=== PATIENT | female | born 1955 | race Caucasian/White ===

== ENCOUNTER → 2017-07-20 07:07 | Outpatient (CLI) | payer OTHER, SELFPAY ==
[2017-07-20 07:21] LABS: Basophils % 0.9 % (0.1-2.0); Eosinophils # 0.1 K/mm3 (0.0-0.4); Eosinophils % 1.8 % (0.1-12.0); Hemoglobin 14.9 g/dL (12.2-16.2); Lymphocytes # 1.6 K/mm3 (0.7-4.5); Lymphocytes % 41.6 K/mm3 (10-50); Mean Corpuscular HGB Conc 32.4 g/dL (31.8-35.4); Mean Corpuscular Hemoglobin 29.5 pg (27.0-31.2); Mean Corpuscular Volume 91.2 fl (81-99); Mean Platelet Volume 7.3 fl (7.4-10.4); Monocytes # 0.2 K/mm3 (0.1-1.0); Neutrophils # 1.9 K/mm3 (1.8-7.8); Neutrophils % 49.7 % (37.0-80.0); Platelet Count 238 K/mm3 (142-424); Red Blood Count 5.04 M/mm3 (4.20-5.40); Red Cell Distribution Width 12.8 % (11.5-17.5); White Blood Count 3.9 K/mm3 (4.8-10.8)
[2017-07-20 09:46] LABS: Erythrocyte Sedimentation Rate 6 mm/hr (0-30)
[2017-07-20 09:47] LABS: Alanine Aminotransferase 108 U/L (12-78); Albumin/Globulin Ratio 1.3 (1.1-1.8); Alkaline Phosphatase 114 U/L (46-116); Anion Gap 11.3 mEq/L (5-15); Aspartate Amino Transferase 72 U/L (15-37); Bilirubin,Total 0.4 mg/dL (0.2-1.0); Blood Urea Nitrogen 21 mg/dL (7-18); Calcium 9.2 mg/dL (8.5-10.1); Carbon Dioxide 30 mmol/L (21.0-32.0); Chloride 107 mmol/L (98-107); Chol/HDL Ratio 2.2 (1-3.5); Cholesterol 219 mg/dL (140-200); Creatinine,Serum 0.68 mg/dL (0.55-1.02); Estimated Glomerular Filt Rate 87 ml/min (>60); Free Thyroxine Index 3.5 ug/dL (5.93-13.13); GFR (African American) 106 ML/MIN (>60); Globulin 3.2 gm/dl (1.3-3.2); Glucose 87 mg/dL (74-106); HDL Cholesterol 99 mg/dL (29-89); LDL Cholesterol 109 mg/dL (0-130); Potassium 5.3 mmoL/L (3.5-5.1); Sodium 143 mmol/L (136-145); T4 (Thyroxine) 9.6 ug/dl (4.7-13.3); Thyroid Stimulating Hormone 5.45 uIU/ml (0.358-3.740); Total Protein,Serum 7.2 gm/dL (6.4-8.2); Triglycerides 55 mg/dL (30-200); Triiodothryronine (T3) Uptake 36 % (31-39); VLDL Cholesterol 11 mg/dL (0-40)
== END ==
PROVIDERS: Visit Provider Internal Medicine Adolescent Medicine
DX: E03.9 Hypothyroidism, unspecified (principal); M19.041 Primary osteoarthritis, right hand; M19.042 Primary osteoarthritis, left hand; Z00.00 Encounter for general adult medical examination without abnormal findings
CPT/HCPCS: 36415; 80053; 80061; 84436; 84443; 84479; 85025; 85651

== ENCOUNTER → 2017-11-25 08:15 | Outpatient (CLI) | payer OTHER, SELFPAY ==
--- NOTE | 2017-11-25 08:17 | XR_ITS ---
. DEXA DEXA SCAN.-BONE DENSITY STUDY HIPS AND LUMBAR SPINE HISTORY: Postmenopausal female 62-year-old female. It. Hypothyroidism. Taking evista and levoxyl. Occasional calcium replacement. Wrist fracture from old horse injury TECHNIQUE: DEXA scan hip and lumbar spine The most complete data summary and color graphic presentation of the today's ( and any prior ) DEXA findings are available in PACS. Definition and treatment guidelines included. COMPARISON: October 2016 LUMBAR SPINE: . Normal bone density L1 vertebral body demonstrates the lowest T score -0.1 with BMD1.114 g/cm sq Overall mean lumbar L1-L4 T score 1.3 cm with BMD1.334 g/cm sq . 2017 prior DEXA the mean T score 0.7 with BMD was1.267g/cm sq Thus when comparing today's study to the prior exam there's been a 5.3% increasing mean bone density at the lumbar spine. HIPS: Femoral neck density is best predictor of hip fracture risk . Left femoral neck demonstrates the lowest T score -1.2 with BMD0.877 g/cm sq . Right femoral neck T score -1.0 with BMD 0.902 Averaging all region included yields today's Hip Mean T score -1.0 with BMD0.877 g/cm sq . 2017 DEXA overall average mean hip. T score -1.1 with mean BMD0.873 g/cm sq Thus this reflects a 0.5% decrease overall mean bone density at the hips in the interval. IMPRESSION 1. LUMBAR SPINE: Normal bone density at all levels 2. HIPS:. Overall borderline osteopenia with overall T score = -1.0... But improving slightly since 2017 Mild/borderline Osteopenia at femoral necks with T score = -1.2 at left femoral neck; and T score = 1.0 at right femoral neck WHO criteria for post-menopausal, Women: Normal: T-score at or above -1 SD Osteopenia: T-score between -1 and -2.5 SD Osteoporosis: T-score at or below -2.5 SD
--- NOTE | 2017-11-25 08:17 | MM_ITS ---
MM Dig screening mamm BI w/CAD CAD Screening COMPARISON: Digital mammograms with CAD 10/24/2015 and 10/29/2016 INDICATION: There Is a history of breast cancer patient's sister diagnosed before menopause. There have been previous biopsies on each breast for benign disease. TECHNIQUE: Standard CC and MLO images were obtained. R2 CAD reviewed. FINDINGS: Prominent heterogenic fibroglandular densities are seen in the central portions and subareolar regions of both breasts. There are few benign-appearing calcifications in each breast. There is a biopsy clip right breast. There is no suspicious lesion and no suspicious microcalcifications. IMPRESSION: Moderate breast density with no suspicious lesion seen BI-RADS Category: 2 Benign Finding(s) RECOMMENDED FOLLOW-UP: 1YR - 1 YEAR FOLLOW-UP (A letter has been sent to the patient regarding results of the study.)
== END ==
PROVIDERS: Family Provider Internal Medicine Adolescent Medicine; PCP Internal Medicine Adolescent Medicine; Visit Provider Obstetrics & Gynecology
DX: Z78.0 Asymptomatic menopausal state (principal); Z12.31 Encounter for screening mammogram for malignant neoplasm of breast
CPT/HCPCS: 77067; 77080

== ENCOUNTER → 2018-06-24 07:08 | Outpatient (CLI) | payer OTHER, SELFPAY ==
[2018-06-24 08:51] LABS: Alanine Aminotransferase 55 U/L (12-78); Albumin Level 3.9 gm/dL (3.4-5.0); Albumin/Globulin Ratio 1.4 (1.1-1.8); Alkaline Phosphatase 100 U/L (46-116); Anion Gap 12.3 mEq/L (5-15); Aspartate Amino Transferase 44 U/L (15-37); Bilirubin,Total 0.4 mg/dL (0.2-1.0); Blood Urea Nitrogen 18 mg/dL (7-18); Calcium 8.9 mg/dL (8.5-10.1); Carbon Dioxide 29 mmol/L (21.0-32.0); Chloride 106 mmol/L (98-107); Chol/HDL Ratio 2.3 (1-3.5); Cholesterol 173 mg/dL (140-200); Creatinine,Serum 0.82 mg/dL (0.55-1.02); Estimated Glomerular Filt Rate 70 ml/min (>60); GFR (African American) 85 ML/MIN (>60); Globulin 2.8 gm/dl (1.3-3.2); Glucose 89 mg/dL (74-106); HDL Cholesterol 74 mg/dL (29-89); LDL Cholesterol 88 mg/dL (0-130); Potassium 4.3 mmoL/L (3.5-5.1); Sodium 143 mmol/L (136-145); Thyroid Stimulating Hormone 6.07 uIU/ml (0.358-3.740); Total Protein,Serum 6.7 gm/dL (6.4-8.2); Triglycerides 53 mg/dL (30-200); VLDL Cholesterol 11 mg/dL (0-40)
[2018-06-27 09:56] LABS: Vitamin D 25 Hydroxy 43.4 ng/mL (30.0-100.0)
== END ==
PROVIDERS: Visit Provider Nurse Practitioner Family
DX: Z00.00 Encounter for general adult medical examination without abnormal findings (principal); E03.9 Hypothyroidism, unspecified; M94.9 Disorder of cartilage, unspecified; M89.9 Disorder of bone, unspecified
CPT/HCPCS: 36415; 80053; 80061; 82652; 84443

== ENCOUNTER → 2018-09-27 10:12 | Outpatient (CLI) | payer OTHER, SELFPAY ==
[2018-09-27 11:39] LABS: Thyroid Stimulating Hormone 0.05 uIU/ml (0.358-3.740)
== END ==
PROVIDERS: Visit Provider Nurse Practitioner Family
DX: E03.9 Hypothyroidism, unspecified (principal)
CPT/HCPCS: 36415; 84443

== ENCOUNTER → 2018-12-01 09:04 | Outpatient (CLI) | payer MEDICARE, OTHER, SELFPAY ==
--- NOTE | 2018-12-01 09:06 | MM_ITS ---
MM Dig screening mamm BI w/CAD ORDERING PHYSICIAN : Manjit Quispe MD PATIENT AGE: 63 years GENDER: Female COMPARISON: November 2017, along multiple prior studies October 2016, 2015, 2014, 2013, August 2012 INDICATION: Routine SCREENING. No hormones no new complaints. Previous benign stereotactic biopsy right and left breast Family history. Sister with breast cancer at age 30 premenopausal TECHNIQUE: Standard CC and MLO images were obtained. R2 CAD reviewed. FINDINGS: Moderate scattered fibroglandular elements both breast. Asymmetric heterogeneous fibroglandular pattern. RIGHT BREAST:No significant new findings at right breast follow-up in one year . Metallic marker from previous percutaneous biopsy of the medial right breast LEFT BREAST: On the cc view there is a area of density at the retroareolar region. This seems to be located at 12:00 it becomes less evident on the MLO view. This area has shown very slow gradual progression over this series of years , particularly compared back to 2013 and at this point recommended additional views to further evaluate.-should include full 90 degree view left breast, along with axillary cc view; & spot views in the CC & MLO projection. Ultrasound also suggested subsequent to these views. Small calcifications at the upper outer quadrant remain stable. , IMPRESSION: Left mammogram: Area of density at the superior retroareolar region 12 o'clock position warrants additional views and ultrasound to further evaluate Right mammogram: Stable with no new findings. Follow-up in one year on the right adequate BI-RADS Category: 0 Need Additional Imaging Evaluation RECOMMENDED FOLLOW-UP: IMM - IMMEDIATE FOLLOW-UP RECOMMENDED Diagnostic mammogram views Left breast with subsequent Left breast ultrasound (A letter has been sent to the patient regarding results of the study.)
== END ==
PROVIDERS: PCP Internal Medicine Adolescent Medicine; Visit Provider Obstetrics & Gynecology
DX: Z12.31 Encounter for screening mammogram for malignant neoplasm of breast (principal)
CPT/HCPCS: 77067

== ENCOUNTER → 2018-12-15 13:20 | Outpatient (CLI) | payer MEDICARE, OTHER, SELFPAY ==
--- NOTE | 2018-12-15 13:23 | US_ITS ---
MM Dig mamm DX unilat LT CAD, US breast LT complete INDICATION: Follow-up abnormal mammogram ORDERING PHYSICIAN: Manjit Quispe MD PATIENT AGE: 63 years COMPARISON: 12/01/2018, 11/25/2017 TECHNIQUE: Spot compression views of the left breast along with left breast ultrasound FINDINGS: There is average to dense fibroglandular tissue. There is a persistent irregular nodule in the superior retroareolar region measuring approximately 13 x 10 mm. The margins are irregular on the cc view but having a more smooth contour on the MLO view. There are benign-appearing calcifications in the lateral aspect of the left breast. Left breast ultrasound: At 1:00 near the nipple there is a focal area of shadowing. The margins are somewhat irregular. This is felt to correspond to the mammographic abnormality and is suspicious. Ultrasound-guided mammotome biopsy is recommended. The remaining breast is unremarkable appearance. IMPRESSION: There is a suspicious irregular density in the 1:00 region of the left breast which shows prominent shadowing with decrease echogenicity. Ultrasound-guided mammotome biopsy recommended BI-RADS Category: 4 Suspicious Abnormality-Biopsy Considered RECOMMENDED FOLLOW-UP: BIO - BIOPSY RECOMMENDED (A letter has been sent to the patient regarding results of the study.)
== END ==
PROVIDERS: PCP Internal Medicine Adolescent Medicine; Visit Provider Obstetrics & Gynecology
DX: R92.8 Other abnormal and inconclusive findings on diagnostic imaging of breast (principal)
CPT/HCPCS: 76641; 77065

== ENCOUNTER → 2019-01-03 09:28 | Outpatient (CLI) | payer MEDICARE, OTHER, SELFPAY ==
--- NOTE | 2019-01-03 09:32 | US_ITS ---
PROCEDURE: US MAMMOTOME BX LT CLINICAL INDICATION: abnormal mammogram COMPARISON: [facility] MM Dig screening mamm BI w/CAD from 11/25/2017 US LT BREAST from 12/15/2018 DIG MAMM-DX UNI-LT from 12/15/2018 MM CLIP PLACEMENT LT from 01/03/2019 FINDINGS: Technique: Following obtaining informed consent under aseptic conditions and local anesthesia with 1 percent buffered lidocaine and deeper anesthesia with buffered lidocaine mixed with epinephrine, a skin norma was performed mm audibly needle inserted into the suspicious mammographic area in the retroareolar region near 1 o'clock. Multiple mammotome E cores were obtained and a non fair magnetic clip placed. The patient tolerated the procedure well without evidence of immediate complications. Post biopsy mammogram demonstrates the clip in place in satisfactory position. Post biopsy changes are noted in the expected area of the sonographic abnormality. Pathology: Invasive lobular carcinoma IMPRESSION: Successful sonographic guided mammotome biopsy of the left breast demonstrating invasive lobular carcinoma. Recommendations: Surgical consult Dictated by: Tony Ayala MD 01/05/2019 17:35 Signed by: <Electronically signed by Tony Ayala MD in [place]> 01/05/2019 17:35
== END ==
PROVIDERS: PCP Internal Medicine Adolescent Medicine; Visit Provider Obstetrics & Gynecology
DX: C50.212 Malignant neoplasm of upper-inner quadrant of left female breast
CPT/HCPCS: 19083; 76942; 77065; C2618

== ENCOUNTER → 2019-01-11 08:40 | Outpatient (CLI) | payer MEDICARE, OTHER, SELFPAY ==
[2019-01-11 12:14] LABS: Free T4 (Free Thyroxine) 1.94 ng/dl (0.76-1.46); Thyroid Stimulating Hormone 0.02 uIU/ml (0.358-3.740)
== END ==
PROVIDERS: Visit Provider Nurse Practitioner Family
DX: E03.9 Hypothyroidism, unspecified (principal)
CPT/HCPCS: 36415; 84439; 84443

== ENCOUNTER → 2019-04-04 13:19 | Outpatient (CLI) | payer MEDICARE, OTHER, SELFPAY ==
--- NOTE | 2019-04-04 13:41 | XR_ITS ---
PROCEDURE: XR CHEST 2V CLINICAL HISTORY: FEVER,WEAKNESS Breast cancer, status post mastectomy. COMPARISON: US MAMMOTOME BX LT from 01/03/2019 FINDINGS: The cardiomediastinal silhouette and pulmonary vascularity are within normal limits. The lungs are clear without infiltrates, suspicious nodules, or pleural effusions. There are 2 ports and a an eligibility consultant the left breast region. Calcified granuloma is present right upper lobe. IMPRESSION: No acute findings. Dictated by: Tony Ayala MD 04/04/2019 13:53 Electronically signed by Tony Ayala MD in [place] 04/04/2019 13:53
[2019-04-04 13:56] LABS: White Blood Count 2.6 K/mm3 (4.8-10.8)
[2019-04-04 13:57] LABS: Basophils % 0.5 % (0.1-2.0); Eosinophils # 0.4 K/mm3 (0.0-0.4); Eosinophils % 15.4 % (0.1-12.0); Hematocrit 40.4 % (37.0-47.0); Hemoglobin 13.2 g/dL (12.2-16.2); Lymphocytes # 0.4 K/mm3 (0.7-4.5); Lymphocytes % 16.6 % (10-50); Mean Corpuscular HGB Conc 32.7 g/dL (31.8-35.4); Mean Corpuscular Hemoglobin 27.8 pg (27.0-31.2); Mean Corpuscular Volume 85.1 fl (81-99); Mean Platelet Volume 7.3 fl (7.4-10.4); Monocytes # 0.2 K/mm3 (0.1-1.0); Monocytes % 5.9 % (1.7-9.3); Neutrophils # 1.6 K/mm3 (1.8-7.8); Neutrophils % 61.6 % (37.0-80.0); Platelet Count 195 K/mm3 (142-424); Red Blood Count 4.75 M/mm3 (4.20-5.40); Red Cell Distribution Width 13.2 % (11.5-17.5)
[2019-04-04 14:15] LABS: Alanine Aminotransferase 51 U/L (12-78); Albumin Level 3.5 gm/dL (3.4-5.0); Alkaline Phosphatase 92 U/L (46-116); Anion Gap 15.8 mEq/L (5-15); Aspartate Amino Transferase 47 U/L (15-37); Bilirubin,Total 0.4 mg/dL (0.2-1.0); Blood Urea Nitrogen 12 mg/dL (7-18); Calcium 9.1 mg/dL (8.5-10.1); Carbon Dioxide 25 mmol/L (21.0-32.0); Chloride 96 mmol/L (98-107); Creatinine,Serum 0.84 mg/dL (0.55-1.02); Estimated Glomerular Filt Rate 68 ml/min (>60); GFR (African American) 82 ML/MIN (>60); Globulin 3.6 gm/dl (1.3-3.2); Glucose 90 mg/dL (74-106); Potassium 3.8 mmoL/L (3.5-5.1); Sodium 133 mmol/L (136-145); Total Protein,Serum 7.1 gm/dL (6.4-8.2)
== END ==
PROVIDERS: Visit Provider Nurse Practitioner Family
DX: R50.9 Fever, unspecified (principal); R53.1 Weakness
CPT/HCPCS: 36415; 71046; 80053; 85025; 87040; 87086

== ENCOUNTER → 2019-04-06 08:21 | Outpatient (CLI) | payer MEDICARE, OTHER, SELFPAY ==
[2019-04-06 08:36] LABS: Basophils % 0.4 % (0.1-2.0); Eosinophils # 0.2 K/mm3 (0.0-0.4); Eosinophils % 6.7 % (0.1-12.0); Hematocrit 37.8 % (37.0-47.0); Hemoglobin 12.8 g/dL (12.2-16.2); Lymphocytes # 1.5 K/mm3 (0.7-4.5); Mean Corpuscular HGB Conc 33.8 g/dL (31.8-35.4); Mean Corpuscular Hemoglobin 28.5 pg (27.0-31.2); Mean Corpuscular Volume 84.2 fl (81-99); Mean Platelet Volume 7.4 fl (7.4-10.4); Monocytes # 0.2 K/mm3 (0.1-1.0); Monocytes % 7.4 % (1.7-9.3); Neutrophils # 1.3 K/mm3 (1.8-7.8); Neutrophils % 40.5 % (37.0-80.0); Platelet Count 223 K/mm3 (142-424); Red Blood Count 4.49 M/mm3 (4.20-5.40); Red Cell Distribution Width 12.2 % (11.5-17.5); White Blood Count 3.2 K/mm3 (4.8-10.8)
== END ==
PROVIDERS: Visit Provider Nurse Practitioner Family
DX: D72.819 Decreased white blood cell count, unspecified (principal)
CPT/HCPCS: 36415; 85025

== ENCOUNTER → 2019-04-19 14:07 | Outpatient (CLI) | payer MEDICARE, OTHER, SELFPAY ==
[2019-04-19 16:24] LABS: Basophils # 0.1 K/mm3 (0-0.2); Basophils % 1.3 % (0.1-2.0); Eosinophils # 0.2 K/mm3 (0.0-0.4); Eosinophils % 2.8 % (0.1-12.0); Hematocrit 36.4 % (37.0-47.0); Lymphocytes # 1.7 K/mm3 (0.7-4.5); Lymphocytes % 27.3 % (10-50); Mean Corpuscular HGB Conc 32.8 g/dL (31.8-35.4); Mean Corpuscular Hemoglobin 28.4 pg (27.0-31.2); Mean Corpuscular Volume 86.7 fl (81-99); Mean Platelet Volume 7.6 fl (7.4-10.4); Monocytes # 0.4 K/mm3 (0.1-1.0); Monocytes % 7.3 % (1.7-9.3); Neutrophils # 3.7 K/mm3 (1.8-7.8); Neutrophils % 61.3 % (37.0-80.0); Platelet Count 320 K/mm3 (142-424); Red Cell Distribution Width 12.4 % (11.5-17.5); White Blood Count 6.1 K/mm3 (4.8-10.8)
== END ==
PROVIDERS: Visit Provider Internal Medicine Adolescent Medicine
DX: D72.819 Decreased white blood cell count, unspecified (principal)
CPT/HCPCS: 36415; 85025

== ENCOUNTER → 2019-05-15 07:12 | Outpatient (CLI) | payer MEDICARE, OTHER, SELFPAY ==
[2019-05-15 07:31] LABS: Basophils # 0.1 K/mm3 (0-0.2); Basophils % 1.4 % (0.1-2.0); Eosinophils # 0.2 K/mm3 (0.0-0.4); Eosinophils % 4.3 % (0.1-12.0); Hematocrit 42.5 % (37.0-47.0); Lymphocytes % 44.9 % (10-50); Mean Corpuscular Hemoglobin 28.7 pg (27.0-31.2); Mean Corpuscular Volume 86.7 fl (81-99); Mean Platelet Volume 7.3 fl (7.4-10.4); Monocytes # 0.3 K/mm3 (0.1-1.0); Monocytes % 6.3 % (1.7-9.3); Neutrophils # 1.9 K/mm3 (1.8-7.8); Neutrophils % 43.1 % (37.0-80.0); Platelet Count 299 K/mm3 (142-424); White Blood Count 4.5 K/mm3 (4.8-10.8)
[2019-05-15 08:06] LABS: Thyroid Stimulating Hormone 0.01 uIU/ml (0.358-3.740)
== END ==
PROVIDERS: Visit Provider Nurse Practitioner Family
DX: D72.819 Decreased white blood cell count, unspecified (principal); E03.9 Hypothyroidism, unspecified; C50.912 Malignant neoplasm of unspecified site of left female breast
CPT/HCPCS: 36415; 84443; 85025

== ENCOUNTER → 2019-06-04 09:26 | Outpatient (CLI) | payer MEDICARE, OTHER, SELFPAY ==
--- NOTE | 2019-06-04 09:29 | XR_ITS ---
PROCEDURE: XR DEXA AXIAL SKELETON CLINICAL HISTORY: POST MENOPAUSAL COMPARISON: No exams were available for comparison FINDINGS: Right femoral neck density is 0.795 grams/centimeter sq with a T-score of -1.2 consistent with osteopenia. Left femoral neck density is 0.689 grams/centimeters sq with a T-score of -1.4 consistent with osteopenia. L1-L4 density is 1.142 grams/centimeters sq with a T-score of 0.9. IMPRESSION: Osteopenia of the hips with moderate fracture risk. Treatment advised. Suggest follow-up exam in 1 year Dictated by: Tony Ayala MD 06/07/2019 16:51 Electronically signed by Tony Ayala MD in [place] 06/07/2019 16:51
== END ==
PROVIDERS: PCP Internal Medicine Adolescent Medicine; Visit Provider Nurse Practitioner Family
DX: Z13.820 Encounter for screening for osteoporosis (principal); Z78.0 Asymptomatic menopausal state
CPT/HCPCS: 77080

== ENCOUNTER → 2019-08-20 07:07 | Outpatient (CLI) | payer MEDICARE, OTHER, SELFPAY ==
[2019-08-20 07:38] LABS: Eosinophils # 0.2 K/mm3 (0.0-0.4); Eosinophils % 5.8 % (0.1-12.0); Hematocrit 42.7 % (37.0-47.0); Hemoglobin 14.2 g/dL (12.2-16.2); Lymphocytes # 1.6 K/mm3 (0.7-4.5); Mean Corpuscular HGB Conc 33.3 g/dL (31.8-35.4); Mean Corpuscular Hemoglobin 28.1 pg (27.0-31.2); Mean Corpuscular Volume 84.4 fl (81-99); Mean Platelet Volume 7.6 fl (7.4-10.4); Monocytes # 0.3 K/mm3 (0.1-1.0); Monocytes % 6.3 % (1.7-9.3); Neutrophils % 47.9 % (37.0-80.0); Platelet Count 236 K/mm3 (142-424); Red Blood Count 5.06 M/mm3 (4.20-5.40); Red Cell Distribution Width 12.9 % (11.5-17.5); White Blood Count 4.1 K/mm3 (4.8-10.8)
[2019-08-20 08:09] LABS: Chloride 106 mmol/L (98-107); Potassium 4.8 mmoL/L (3.5-5.1); Sodium 139 mmol/L (136-145)
[2019-08-20 08:11] LABS: Blood Urea Nitrogen 13 mg/dl (7-17); Estimated Glomerular Filt Rate 100 ml/min (>60); GFR (African American) 121 ML/MIN (>60)
[2019-08-20 08:12] LABS: Alanine Aminotransferase 30 U/L (12-78); Albumin Level 4.2 g/dl (3.5-5.0); Albumin/Globulin Ratio 1.8 (1.1-1.8); Alkaline Phosphatase 85 U/L (38-126); Anion Gap 9.8 mEq/L (5-15); Aspartate Amino Transferase 39 U/L (14-36); Bilirubin,Total 0.7 mg/dl (0.2-1.3); Calcium 9.9 mg/dl (8.4-10.2); Carbon Dioxide 28 mmol/L (22.0-30.0); Chol/HDL Ratio 2.3 (1-3.5); Cholesterol 190 mg/dl (140-200); Globulin 2.4 g/dL (1.3-3.2); Glucose 90 mg/dl (74-100); HDL Cholesterol 84 mg/dl (40-60); Total Protein,Serum 6.6 g/dl (6.3-8.2); Triglycerides 62 mg/dl (30-150); VLDL Cholesterol 12 mg/dL (0-40)
[2019-08-20 08:23] LABS: Free T4 (Free Thyroxine) 1.41 ng/dl (0.78-2.19)
[2019-08-20 08:24] LABS: Direct LDL Cholesterol 100.29 mg/dL (100-129)
[2019-08-20 08:43] LABS: Thyroid Stimulating Hormone < 0.02 uIU/mL (0.465-4.68)
[2019-08-21 09:51] LABS: Vitamin D 25 Hydroxy 50.9 ng/mL (30.0-100.0)
== END ==
PROVIDERS: Visit Provider Nurse Practitioner Family
DX: E03.9 Hypothyroidism, unspecified (principal); D72.819 Decreased white blood cell count, unspecified; C50.912 Malignant neoplasm of unspecified site of left female breast; Z51.81 Encounter for therapeutic drug level monitoring
CPT/HCPCS: 36415; 80053; 80061; 82652; 84439; 84443; 85025

== ENCOUNTER → 2020-02-23 09:51 | Outpatient (CLI) | payer MEDICARE, OTHER, SELFPAY ==
[2020-02-23 10:59] LABS: Coronavirus 19 IgG Antibody Negative (Negative); Coronavirus 19 IgM Antibody Negative (Negative)
== END ==
PROVIDERS: Visit Provider Internal Medicine Gastroenterology
DX: Z03.818 Encounter for observation for suspected exposure to other biological agents ruled out (principal); Z12.11 Encounter for screening for malignant neoplasm of colon
CPT/HCPCS: 36415; 86328

== ENCOUNTER 2020-02-25 09:59 | Day surgery (SDC) | payer MEDICARE, OTHER, SELFPAY ==
[2020-02-20 13:13] VITALS: BMI 23.3
[2020-02-25] VITALS (7 sets, daily range): BP systolic 111–152; BP diastolic 50–76; PULSE 58–77; RESP 16–18; TEMP 36.6–36.7; O2SAT 97–100
--- NOTE | 2020-02-25 11:21 | P.PN_ITS ---
[facility] Anesthesia Checklist - Patient Identification Patient Identification: Arm Band, Verbal (Name & ) - Structural Data Admitted From: Home Planned Operative Procedure/s: Colonoscopy Consent for Planned Operative Procedure(s) Verified: Yes Verified Documents: Surgical Consent, History and Physical - NPO Status Verified Time NPO: 00:00 - Chart Verification Results Verified: None - Additional verifications Anesthesia Reactions: No - Airway Assessment C-Spine Mobility Assessed: Yes TMJ Mobility Assessed: Yes Dentition: Good Dentition - Neurological Assessment Level of Consciousness: Awake, Alert, Appropriate, Follows Commands Hx Seizures: No Numbness or tingling in extremities: No - Anesthesia Plan Anesthesia Risk discussed: Yes Anesthesia Plan: Verified ASA Class: II Anesthesia Type: MAC [facility] History I have reviewed the patient's past medical history: Yes Medical History: Reports:: Cancer (breast) Denies:: Diabetes Mellitus Type 1, Diabetes Mellitus Type 2, Internal Pacemaker, MRSA, Seizures *Have you ever received a pneumonia vaccine?: No *Have you received a flu vaccine this season?: No Other Medical History: Reports: Hypothyroidism Anesthesia experience/problems:: No prior complications Laterality Cases: Left: Mastectomy Other Surgeries: No: Pacemaker Amputation: No Fractures: No - *Social History Last grade of school completed: Some college Smoking Status: Never smoker Alcohol Intake: never Alcohol Intake Frequency:: other Substance Use Type: denies use *Occupational Status:: unemployed Housing: house Household Members: significant other *Travel in the last 8 weeks: None Family Hx:: Diabetes, Hypertension, Cancer
--- NOTE | 2020-02-25 11:29 | HMH.PROC ---
[facility] Procedure Note Procedure Note:: Colonoscopy Procedure Report: Colonoscopy Endoscopist: Carlos Wong II, MD Referring physician: Tariq James M.D. Date of Procedure: February 25, 2020 Equipment: Olympus 180 variable stiffness pediatric colonoscope Sedation: MAC sedation Indication: Mrs. De Los Santos is a 64-year-old female who is here for follow-up screening/surveillance colonoscopy. Her last colonoscopy was in 2009 (Josias Avila M.D.) and was normal except for a diminutive hyperplastic polyp that was removed. She reports no abdominal pain, weight loss, change in her bowel habits or rectal bleeding. She reports no family history of colon cancer. Procedure: Prior to the procedure, a history and physical exam was performed, and patient's medications and allergies were reviewed. The risks, benefits and alternatives of the sedation and procedure were discussed with the patient. All questions were answered and informed consent was obtained. The patient was brought to the procedure room. Patient identification and proposed procedure were verified by the physician and the nurse. The patient was placed in a left lateral decubitus position and the scope was passed under direct vision. Throughout the procedure, the patient's blood pressure, pulse, and oxygen saturations were monitored continuously. The colonoscopy was accomplished without difficulty. The patient tolerated the procedure well. Findings: On digital rectal examination there was normal rectal tone. There were no external hemorrhoids. The colonoscope was introduced through the anal canal to the rectum and advanced to the cecum. The ileocecal valve and appendiceal orifice were identified. The scope was advanced a short distance into the ileum which appeared grossly normal. The scope was then withdrawn into the colon. The cecum, ascending and transverse colon and mucosa were grossly normal. There were scattered diverticuli throughout the descending and sigmoid colon (LEFT colon). The rectum itself was normal. Upon retroflexion within the rectum there were grade 1 internal hemorrhoids. The preparation was excellent throughout with [place] Preparation Score of 9. The cecal time was 13 minutes. Impression: 1. Left-sided diverticulosis 2. Grade 1 internal hemorrhoids Plan: The patient will not require screening/surveillance colonoscopy again for 10 years by ACS guidelines. I would encourage fiber supplementation on a long-term daily maintenance basis.
== END 2020-02-25 12:20 | disposition home or self-care (01) ==
LOC: OUTP 10:02
PROVIDERS: PCP Internal Medicine Adolescent Medicine; Visit Provider Internal Medicine Gastroenterology
PROC: 0DJD8ZZ Inspection of Lower Intestinal Tract, Via Natural or Artificial Opening Endoscopic (ICD-10-PCS; CPT 45378; principal; 2020-02-25 11:00)
DX: Z12.11 Encounter for screening for malignant neoplasm of colon (principal); K57.30 Diverticulosis of large intestine without perforation or abscess without bleeding; K64.0 First degree hemorrhoids; Z86.010 Personal history of colon polyps; Z85.3 Personal history of malignant neoplasm of breast; E03.9 Hypothyroidism, unspecified; Z90.10 Acquired absence of unspecified breast and nipple; Z83.3 Family history of diabetes mellitus; Z82.49 Family history of ischemic heart disease and other diseases of the circulatory system; Z80.9 Family history of malignant neoplasm, unspecified
CPT/HCPCS: G0121

== ENCOUNTER → 2020-04-30 07:01 | Outpatient (CLI) | payer MEDICARE, OTHER, SELFPAY ==
[2020-04-30 07:29] LABS: Basophils # 0.1 K/mm3 (0-0.2); Basophils % 1.6 % (0.1-2.0); Eosinophils # 0.2 K/mm3 (0.0-0.4); Eosinophils % 3.6 % (0.1-12.0); Hemoglobin 14.7 g/dL (12.2-16.2); Lymphocytes # 1.8 K/mm3 (0.7-4.5); Lymphocytes % 41.2 % (10-50); Mean Corpuscular HGB Conc 33.5 g/dL (31.8-35.4); Mean Corpuscular Hemoglobin 30.1 pg (27.0-31.2); Mean Corpuscular Volume 89.7 fl (81-99); Mean Platelet Volume 7.5 fl (7.4-10.4); Monocytes # 0.3 K/mm3 (0.1-1.0); Monocytes % 6.4 % (1.7-9.3); Neutrophils # 2.1 K/mm3 (1.8-7.8); Neutrophils % 47.2 % (37.0-80.0); Platelet Count 243 K/mm3 (142-424); Red Cell Distribution Width 13.4 % (11.5-17.5); White Blood Count 4.4 K/mm3 (4.8-10.8)
[2020-04-30 09:15] LABS: Chloride 105 mmol/L (98-107); Potassium 4.9 mmoL/L (3.5-5.1); Sodium 141 mmol/L (136-145)
[2020-04-30 09:17] LABS: Blood Urea Nitrogen 14 mg/dl (7-17); Estimated Glomerular Filt Rate 72 ml/min (>60); GFR (African American) 87 ML/MIN (>60)
[2020-04-30 09:18] LABS: Alanine Aminotransferase 30 U/L (12-78); Albumin Level 4.1 g/dl (3.5-5.0); Albumin/Globulin Ratio 1.5 (1.1-1.8); Alkaline Phosphatase 88 U/L (38-126); Anion Gap 11.9 mEq/L (5-15); Aspartate Amino Transferase 39 U/L (14-36); Bilirubin,Total 0.8 mg/dl (0.2-1.3); Calcium 9.8 mg/dl (8.4-10.2); Carbon Dioxide 29 mmol/L (22.0-30.0); Globulin 2.7 g/dL (1.3-3.2); Glucose 99 mg/dl (74-100); Total Protein,Serum 6.8 g/dl (6.3-8.2)
[2020-04-30 09:49] LABS: Thyroid Stimulating Hormone 1.16 uIU/mL (0.465-4.68)
== END ==
PROVIDERS: Visit Provider Internal Medicine Adolescent Medicine
DX: E03.9 Hypothyroidism, unspecified (principal); R74.8 Abnormal levels of other serum enzymes; D72.819 Decreased white blood cell count, unspecified
CPT/HCPCS: 36415; 80053; 84439; 84443; 85025

== ENCOUNTER → 2020-05-13 10:43 | Outpatient (CLI) | payer MEDICARE, OTHER, SELFPAY ==
--- NOTE | 2020-05-13 | CA_ITS ---
APPROVED REPORT EXAM: Comprehensive 2D, Doppler, and color-flow Echocardiogram [place] Debeader: Casandra Cantor RT(R) Ht: 5 ft 6 in Wt: 145lbs BSA: 1.74 BP: 129/72 mmHg Indications: Syncopal episode 2D Dimensions LVOT 2.00 cm (M/F) 1.5-2.5 M-Mode Dimensions RVDd 2.65 cm (0.9-2.6) LA Diam 2.36 cm (1.9-4.0) LVDd 4.68 cm (3.5-5.7) Ao Diam 2.62 cm (2.0-3.7) LVDs 3.43 cm (3.5-5.7) IVSd 0.84 cm (0.6-1.1) PWd 0.61 cm (0.6-1.1) EF (Teich) 52.10% FS 26.70% EDV (Teich) 101.30 mL ESV (Teich) 48.50 mL LV Diastology E Decel Time 193.00 (160-240 msec) E/A Ratio 0.8 MED E' 6.40 (< 7 cm/sec) E'/MED E' Ratio 11.19 (>14) LAT E' 9.60 (<10 cm/sec) E/LAT E' Ratio 7.46 (>14) Mitral Valve MV E Max Pramod. 72.00 (40-130 cm/s) MV A Velocity 88.00 (40-130 cm/s) E/A Ratio 0.81 MV Decel. Time 193.00 (160-240 ms) MV PHT 57.00 ms Tricuspid Valve TR P. Velocity 206.00 cm/s RAP Estimate 10.00 mmHg RVSP 27.10 mmHg Left Ventricle Left atrium is qualitatively mildly enlarged, left ventricle is normal size, left ventricle wall thickness is upper limit of the normal, visually estimated ejection fraction 55% with no regional wall motion abnormality, Doppler evidence of impaired LV relaxation seen without tissue Doppler evidence of raise left atrial pressure. Right Ventricle Right atrium and right ventricle are normal size and contractility. Atria Intra-atrial septum is intact, there is no flow across the interatrial septum. Aortic Valve Aortic valve is grossly normal, there is no aortic stenosis or aortic insufficiency. Mitral Valve Mitral valve is grossly normal, there is trace mitral regurgitation. Tricuspid Valve Tricuspid valve grossly normal, there is trace tricuspid regurgitation, tricuspid regurgitation jet velocity is inadequate for calculation of the right ventricular systolic pressure. Pulmonic Valve Pulmonic valve is poorly visualized. Great Vessels Aortic root is normal size. Pericardium No significant pericardial effusion noted. Conclusion 1. Mildly enlarged left atrium, normal left ventricular size, visually estimated ejection fraction 55% with no regional wall motion abnormality, Doppler evidence of impaired LV relaxation without tissue Doppler evidence of raise left atrial pressure. 2. Trace mitral and tricuspid regurgitation. 3. No significant pericardial effusion noted. Electronically signed by : Mannie Caballero, 05/14/2020 05:51:33
== END ==
PROVIDERS: PCP Internal Medicine Adolescent Medicine; Visit Provider Nurse Practitioner Family
DX: R55 Syncope and collapse (principal)
CPT/HCPCS: 93306

== ENCOUNTER → 2021-01-13 08:30 | Outpatient (POV) | payer MEDICARE, OTHER, SELFPAY | PROVIDERS: Visit Provider Dermatology | DX: Z00.00 Encounter for general adult medical examination without abnormal findings (principal) ==

== ENCOUNTER → 2021-03-31 07:02 | Outpatient (CLI) | payer MEDICARE, OTHER, SELFPAY ==
[2021-03-31 07:49] LABS: Basophils # 0.1 K/mm3 (0-0.2); Basophils % 1.1 % (0.1-2.0); Eosinophils # 0.1 K/mm3 (0.0-0.4); Hematocrit 40.5 % (37.0-47.0); Hemoglobin 13.8 g/dL (12.2-16.2); Lymphocytes % 44.9 % (10-50); Mean Corpuscular HGB Conc 34.2 g/dL (31.8-35.4); Mean Corpuscular Hemoglobin 29.8 pg (27.0-31.2); Mean Corpuscular Volume 87.2 fl (81-99); Mean Platelet Volume 9.5 fl (7.4-10.4); Monocytes # 0.2 K/mm3 (0.1-1.0); Monocytes % 5.2 % (1.7-9.3); Neutrophils # 2.1 K/mm3 (1.8-7.8); Neutrophils % 45.8 % (37.0-80.0); Platelet Count 243 K/mm3 (142-424); Red Blood Count 4.65 M/mm3 (4.20-5.40); Red Cell Distribution Width 13.3 % (11.5-17.5); White Blood Count 4.5 K/mm3 (4.8-10.8)
[2021-03-31 08:59] LABS: Chloride 107 mmol/L (98-107); Potassium 4.3 mmoL/L (3.5-5.1); Sodium 141 mmol/L (136-145)
[2021-03-31 09:01] LABS: Alanine Aminotransferase 25 U/L (12-78); Alkaline Phosphatase 105 U/L (38-126); Aspartate Amino Transferase 45 U/L (14-36); Bilirubin,Total 0.8 mg/dl (0.2-1.3); Blood Urea Nitrogen 17 mg/dl (7-17); Estimated Glomerular Filt Rate 83 ml/min (>60); GFR (African American) 101 ML/MIN (>60)
[2021-03-31 09:02] LABS: Albumin Level 4.3 g/dl (3.5-5.0); Albumin/Globulin Ratio 1.9 (1.1-1.8); Anion Gap 9.3 mEq/L (5-15); Carbon Dioxide 29 mmol/L (22.0-30.0); Chol/HDL Ratio 2.4 (1-3.5); Cholesterol 212 mg/dl (140-200); Globulin 2.3 g/dL (1.3-3.2); Glucose 93 mg/dl (74-100); HDL Cholesterol 87 mg/dl (40-60); Total Protein,Serum 6.6 g/dl (6.3-8.2); Triglycerides 77 mg/dl (30-150); VLDL Cholesterol 15 mg/dL (0-40)
[2021-03-31 09:13] LABS: Direct LDL Cholesterol 104.23 mg/dL (100-129)
[2021-03-31 09:19] LABS: Free T4 (Free Thyroxine) 1.17 ng/dl (0.78-2.19)
[2021-03-31 09:33] LABS: Thyroid Stimulating Hormone 0.81 uIU/mL (0.465-4.68)
== END ==
PROVIDERS: Visit Provider Nurse Practitioner Family
DX: E03.9 Hypothyroidism, unspecified (principal); Z85.3 Personal history of malignant neoplasm of breast
CPT/HCPCS: 36415; 80053; 80061; 84439; 84443; 85025

== ENCOUNTER → 2022-03-03 08:14 | Outpatient (CLI) | payer MEDICARE, OTHER, SELFPAY ==
--- NOTE | 2022-03-03 08:18 | US_ITS ---
FINAL REPORT CLINICAL HISTORY: ABN LFT,ELEVATED LIVER ENZYMES FINDINGS: Sonographic images of the right upper quadrant were obtained. The pancreas is partially obscured.The liver has an unremarkable appearance. There is a small polyp at the gallbladder fundus. There is no evidence of gallstones. There is no evidence of biliary ductal dilatation.The common duct measures 3 mm. Limited images of the right kidney are unremarkable. IMPRESSION: Small polyp at the fundus of the gallbladder. Reviewed, Interpreted and Dictated by Colten Hutton III, MD Transcribed by Triny Us Authenticated and [facility]
== END ==
PROVIDERS: PCP Internal Medicine Adolescent Medicine; Visit Provider Nurse Practitioner Family
DX: R94.5 Abnormal results of liver function studies (principal); R74.8 Abnormal levels of other serum enzymes; E78.5 Hyperlipidemia, unspecified
CPT/HCPCS: 76705

== ENCOUNTER → 2022-04-06 10:23 | Outpatient (CLI) | payer MEDICARE, OTHER, SELFPAY ==
--- NOTE | 2022-04-06 10:31 | XR_ITS ---
FINAL REPORT CLINICAL HISTORY: RT WRIST PAIN FINDINGS: Right wrist Three views were obtained. There is a mildly comminuted transverse fracture of the distal radius. There is mild dorsal angulation and displacement. There is also comminuted fracture of the distal ulna which extends into the ulnar styloid process. IMPRESSION: Fractures as above. Reviewed, Interpreted and Dictated by Emma Dee MD Transcribed by Mariluz Maradiaga Authenticated and [facility]
== END ==
PROVIDERS: PCP Internal Medicine Adolescent Medicine; Visit Provider Nurse Practitioner Family
DX: M25.531 Pain in right wrist (principal)
CPT/HCPCS: 73110

== ENCOUNTER → 2022-04-12 13:11 | Outpatient (CLI) | payer MEDICARE, OTHER, SELFPAY ==
[2022-04-12 13:23] LABS: Microscopic, Urine URINE MICROSCOPIC (MICROSCOPIC)
--- NOTE | 2022-04-12 13:38 | XR_ITS ---
FINAL REPORT CLINICAL HISTORY: fracture preop FINDINGS: 2 views of the chest were obtained . The heart is normal in size. The mediastinum is within normal limits. The lungs are clear. There is no pneumothorax. Osseous structures are unremarkable. IMPRESSION: No acute cardiopulmonary process. Reviewed, Interpreted and Dictated by Colten Hutton III, MD Transcribed by Sarah Beth Xavier Authenticated and [facility]
[2022-04-12 14:03] LABS: Chloride 108 mmol/L (98-107); Potassium 4.5 mmoL/L (3.5-5.1); Sodium 137 mmol/L (136-145)
[2022-04-12 14:06] LABS: Alanine Aminotransferase 103 U/L (12-78); Albumin Level 4.3 g/dl (3.5-5.0); Albumin/Globulin Ratio 1.4 (1.1-1.8); Alkaline Phosphatase 156 U/L (38-126); Anion Gap 8.5 mEq/L (5-15); Aspartate Amino Transferase 132 U/L (14-36); Basophils # 0.3 K/mm3 (0-0.2); Basophils % 3.7 % (0.1-2.0); Bilirubin,Total 0.7 mg/dl (0.2-1.3); Blood Urea Nitrogen 13 mg/dl (7-17); Carbon Dioxide 25 mmol/L (22.0-30.0); Eosinophils # 0.3 K/mm3 (0.0-0.4); Eosinophils % 3.9 % (0.1-12.0); Estimated Glomerular Filt Rate 83 ml/min (>60); GFR (African American) 101 ML/MIN (>60); Glucose 108 mg/dl (74-100); Hematocrit 50.7 % (37.0-47.0); Hemoglobin 16.6 g/dL (12.2-16.2); Lymphocytes % 28.1 % (10-50); Mean Corpuscular HGB Conc 32.7 g/dL (31.8-35.4); Mean Corpuscular Volume 88.8 fl (81-99); Mean Platelet Volume 8.6 fl (7.4-10.4); Monocytes # 0.2 K/mm3 (0.1-1.0); Monocytes % 3.3 % (1.7-9.3); Neutrophils # 4.6 K/mm3 (1.8-7.8); Neutrophils % 64.6 % (37.0-80.0); Platelet Count 264 K/mm3 (142-424); Red Blood Count 5.71 M/mm3 (4.20-5.40); Red Cell Distribution Width 13.5 % (11.5-17.5); Total Protein,Serum 7.3 g/dl (6.3-8.2)
[2022-04-12 14:14] LABS: Appearance,Urine CLEAR (Clear); Bilirubin,Urine Negative (Negative); Blood, Urine TRACE-I (Negative); Color,Urine YELLOW (Yellow); Glucose,Urine (UA) Negative (Negative); Ketones,Urine Negative (Negative); Leukocyte Esterase,Urine Negative (Negative); Nitrate,Urine Negative (Negative); Protein,Urine Negative (Negative); Specific Gravity, Urine <= 1.005 (1.005-1.030); Urobilinogen,Urine 0.2 EU/dl (0.2)
[2022-04-12 14:31] LABS: Squamous Epithelial Cell,Urine Occasional #/hpf (0-5)
== END ==
PROVIDERS: PCP Internal Medicine Adolescent Medicine; Visit Provider Orthopaedic Surgery
DX: T14.8XXA Other injury of unspecified body region, initial encounter (principal); Z01.818 Encounter for other preprocedural examination; S52.501A Unspecified fracture of the lower end of right radius, initial encounter for closed fracture
CPT/HCPCS: 36415; 71046; 80053; 81001; 85025

== ENCOUNTER 2022-04-19 09:43 | Day surgery (SDC) | payer MEDICARE, OTHER, SELFPAY ==
[2022-04-15 08:36] VITALS: BMI 25.0
--- NOTE | 2022-04-15 08:45 | SUR.PREOP ---
Pt called to report tested positive for Covid 04/15/22 and so far is testing negative herself. Notified Claudia in Dr. Townsend's office and said that as long as pt testing negative and symptom free surgery will go as planned. Pt updated and verbalized understanding of what to do if does test positive.
[2022-04-19] VITALS (10 sets, daily range): BP systolic 143–160; BP diastolic 72–89; PULSE 71–106; RESP 12–18; TEMP 36.4–43; O2SAT 92–97
--- NOTE | 2022-04-19 12:02 | P.PN_ITS ---
[facility] Disclaimer: The information contained in this section may have been updated after the patient was seen, as this information can be updated by other users. Medical History History of breast cancer Hypothyroid Surgical History History of breast biopsy History of colonoscopy History of left mastectomy Family History Other Family history of cancer Social History Smoking Status: Former smoker second hand exposure: No alcohol intake: current substance use type: denies use current occupational status: unemployed Travel in the last 8 weeks: None household members: significant other housing: house current occupational exposures/hazards: No caffeine: Yes [facility] Anesthesia Checklist Patient Identification Patient Identification: Verbal (Name & ) Structural Data Admitted From: Home Planned Operative Procedure/s: orif r wrist Consent for Planned Operative Procedure(s) Verified: Yes NPO Status Verified Time NPO: 00:00 Additional verifications Anesthesia Reactions: No Hx Blood Transfusions: No Blood Transfusion Reaction: No Airway Assessment C-Spine Mobility Assessed: Yes TMJ Mobility Assessed: Yes Dentition: Good Dentition Neurological Assessment Level of Consciousness: Awake, Alert and Appropriate Anesthesia Plan Anesthesia Risk discussed: Yes Anesthesia Plan: Verified ASA Class: II Anesthesia Type: General w/block
--- NOTE | 2022-04-19 12:33 | XR_ITS ---
FINAL REPORT CLINICAL HISTORY: ORIF RT WRIST FT: 22.6 sec FINDINGS: Fluoroscopic guidance was provided for the operating services. Two spot films were provided. 22.6 of fluoroscopy time was utilized. IMPRESSION: 22.6 of fluoroscopy time. Reviewed, Interpreted and Dictated by Colten Hutton III, MD Transcribed by Keshawn Lester Authenticated and [facility]
--- NOTE | 2022-04-19 12:55 | P.OP_ITS ---
Date of procedure: 04/19/22 Pre-op Diagnosis:: Right distal radius intra-articular 2 part Post-op Diagnosis:: Same Procedure performed:: Open reduction internal fixation right distal radius 2 part intra-articular fracture Surgeon:: Kirit Townsend DO Continuous Pickling Line Pickler(s):: Abbi COOPER BIOMEDICAL ENGINEERING PROFESSOR:: Stefan Keith Anesthesia: GETA and regional Estimated blood loss (mL): 0 Operative findings:: Intra-articular distal radius 2 part fracture Operative note:: Patient identified preoperatively. Right arm marked yes my initials. Transferred operative suite. Placed upon operating bed after undergoing a block with anesthesia. Right upper extremity prepped draped normal sterile fashion. Once prepped and draped final operative timeout performed to identify proper patient procedure and extremity. Everyone involved the case agreed. No counter indications to beginning. Did receive preoperative antibiotics. Marking pen was used to frank plan incision over the volar aspect of the wrist. Esmarch was used to exsanguinate extremity pneumatic tourniquet inflated to 250 mmHg. Skin F was used incise the skin careful dissection was taken down to open up the FCR tendon sheath. Dissection was taken down over the FCR tendon and retracted radially throughout the procedure protect the radial artery. Floor the FCR was opened. Pronator quadratus was cut in L-type fashion off the distal radius. To expose the fracture site. Fracture hematoma was seen and evacuated. Reduction maneuver was performed to restore length and volar tilt the distal radius. This was seen on the AP and lateral views of the C arm. Narrow plate was selected and placed on the distal radius. And held pulmonary lady with a pen. Shaft screw was then placed through the plate followed by distal locking s crews. This restored volar tilt back and radial height back. Screws were filled distally and cortical screws were filled proximally in the shaft. Copious irrigation wound performed Final x-rays taken AP and lateral views. Irrigation of the wound repeated. Deep layers closed with Vicryl stitch. Skin closed with nylon stitch. Sterile dressing placed. Well-padded volar splint placed. Patient would anesthesia taken recovery stable condition. Condition: stable Disposition: PACU Complications:: None apparent
--- NOTE | 2022-04-19 12:55 | P.PNANES_ITS ---
[facility] Anesthesia Record Part I Anesthesia Record I Intake, IV Amount: 1,000 Estimated blood loss (mL): 0 Urine output (mL): 0 Blood Pressure: 160/80 SaO2: 93 Pulse Rate: 106 Respiratory Rate: 12 Temperature: 97.9 F Patient is:: Awake and Stable Stable to PACU at:: 12:50
--- NOTE | 2022-04-20 07:56 | P.PNANES_ITS ---
[facility] Anesthesia Record Part II Anesthesia Record Part II Discharge Time: 13:20 Destination: Outpatient Procedures PACU nurse assessment reviewed?: Yes Patient Condition:: Good Anesthesia Complications:: None Swallowing reflex intact?: Yes Cyanosis?: No Blood Pressure: 153/89 Pulse Rate: 110 Temperature: 97.8 F Mental Status: Alert & Oriented Pain level:: 0 Nausea and/or vomitting:: None Intake, IV Amount: 1,800
[2022-04-20 07:58] VITALS: BP 153/89; PULSE 110; TEMP 36.6
== END 2022-04-19 13:51 | disposition home or self-care (01) ==
PROVIDERS: PCP Internal Medicine Adolescent Medicine; Visit Provider Orthopaedic Surgery
PROC: (CPT 25608; principal; 2022-04-19 11:30)
DX: S52.571A Other intraarticular fracture of lower end of right radius, initial encounter for closed fracture (principal); W01.0XXA Fall on same level from slipping, tripping and stumbling without subsequent striking against object, initial encounter; Y93.49 Activity, other involving dancing and other rhythmic movements
CPT/HCPCS: 25608; 73100; 96374; C1713; C1769; C1776; J2405

== ENCOUNTER → 2022-05-04 08:53 | Outpatient (CLI) | payer MEDICARE, OTHER, SELFPAY ==
--- NOTE | 2022-05-04 08:58 | XR_ITS ---
FINAL REPORT CLINICAL HISTORY: ORIF wrist COMPARISON: 04/06/2022 FINDINGS: RIGHT WRIST Three views demonstrate interval postoperative changes from ORIF of a distal radius fracture with a screw plate and multiple screws present. The visualized joint spaces are normally aligned. The joint spaces are intact. There are calcifications adjacent to the ulnar styloid process. IMPRESSION: Postoperative change from ORIF of distal radius fracture. Reviewed, Interpreted and Dictated by Colten Hutton III, MD Transcribed by Triny Us Authenticated and [facility]
== END ==
PROVIDERS: PCP Nurse Practitioner Family; Visit Provider Physician Assistant Surgical
DX: S52.501A Unspecified fracture of the lower end of right radius, initial encounter for closed fracture (principal); M25.531 Pain in right wrist
CPT/HCPCS: 73110

== ENCOUNTER → 2022-06-03 12:47 | Outpatient (CLI) | payer MEDICARE, OTHER, SELFPAY ==
--- NOTE | 2022-06-03 12:57 | XR_ITS ---
FINAL REPORT CLINICAL HISTORY: RT wrist FX follow up COMPARISON: 05/04/2022 FINDINGS: Right wrist Three views were obtained. There are post ORIF changes of the distal radius with complete healing of the radial fracture. The hardware is unremarkable. 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 IMPRESSION: Complete healing of the distal radial fracture. Reviewed, Interpreted and Dictated by Emma Dee MD Transcribed by Mariluz Maradiaga Authenticated and [facility]
== END ==
PROVIDERS: PCP Internal Medicine Adolescent Medicine; Visit Provider Orthopaedic Surgery
DX: S52.501A Unspecified fracture of the lower end of right radius, initial encounter for closed fracture (principal)
CPT/HCPCS: 73110

== ENCOUNTER 2024-05-21 11:23 | Outpatient (CLI) | payer MEDICARE, OTHER, SELFPAY ==
--- NOTE | 2024-05-21 11:29 | XR_ITS ---
FINAL REPORT CLINICAL HISTORY: Hand Injury sledding injury bruising to 4th & 5th COMPARISON: None FINDINGS: RIGHT HAND: Two images of the right hand were obtained. There is a mildly displaced acute boxer's fracture of the distal fifth metacarpal. 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 The patient has undergone previous ORIF of a distal radial fracture. There is no soft tissue abnormality identified. IMPRESSION: Mildly displaced acute boxer's fracture of the distal fifth metacarpal. Reviewed, Interpreted and Dictated by Emma Dee MD Transcribed by Dinora Yee Authenticated and [facility]
--- NOTE | 2024-05-21 11:29 | XR_ITS ---
FINAL REPORT CLINICAL HISTORY: right hand injury sledding injury COMPARISON: none FINDINGS: RIGHT WRIST: Two images of the right wrist were obtained. There is no evidence of acute fracture or dislocation. 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 There has been prior ORIF of a distal radial fracture. There is no soft tissue abnormality identified. IMPRESSION: No acute bony abnormality. Reviewed, Interpreted and Dictated by Emma Dee MD Transcribed by Dinora Yee Authenticated and [facility]
== END 2024-05-21 23:59 | disposition home or self-care (01) ==
LOC: RAD 11:25
PROVIDERS: PCP Internal Medicine Adolescent Medicine; Visit Provider Internal Medicine
DX: M79.641 Pain in right hand (principal); M25.531 Pain in right wrist; S69.91XA Unspecified injury of right wrist, hand and finger(s), initial encounter
CPT/HCPCS: 73100; 73120

== ENCOUNTER 2024-06-18 09:12 | Outpatient (CLI) | payer MEDICARE, OTHER, SELFPAY ==
--- NOTE | 2024-06-18 09:17 | XR_ITS ---
FINAL REPORT CLINICAL HISTORY: right boxer hand fx COMPARISON: 05/21/2024 FINDINGS: RIGHT HAND Three views demonstrate minimal new callus formation of the boxer's fracture at the fifth metacarpal indicating mild fracture healing. The angulation and deformity are stable. 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 Generalized osteopenia is noted. The visualized joint spaces are normally aligned. The soft tissues are unremarkable. IMPRESSION: Partial healing of boxer's fracture as above. Reviewed, Interpreted and Dictated by Emma Dee MD Transcribed by Abi Bello Authenticated and [facility]
== END 2024-06-18 23:59 | disposition home or self-care (01) ==
LOC: RAD 09:14
PROVIDERS: PCP Internal Medicine Adolescent Medicine; Visit Provider Physician Assistant
DX: M79.641 Pain in right hand (principal); S62.336A Displaced fracture of neck of fifth metacarpal bone, right hand, initial encounter for closed fracture
CPT/HCPCS: 73130